=== PATIENT | male | born 1995 | race Caucasian/White ===

== ENCOUNTER 2023-05-06 17:27 | Emergency (ER) | payer BC, SELFPAY ==
--- NOTE | ~2023-05-06 | XR_ITS ---
EXAMINATION: XR hand RT min 3V DATE: 05/06/2023 17:43 INDICATION: Right hand trauma TECHNIQUE: Posteroanterior, oblique and lateral views of the right hand were obtained. COMPARISON: None. FINDINGS: 1 cortical width dorsal lateral displacement and minimal palmar angulation at a transverse fracture a cross the base of the right fifth metacarpal. No evident intra-articular extension. There is mild ove rlying soft tissue swelling. No other fractures identified. Joint spaces are normal. IMPRESSION: 1. Mildly displaced, minimally angulated likely extra articular fracture at the base of the right fif th metacarpal. Reviewed, dictated and finalized at location A. IMPRESSION: 1. Mildly displaced, minimally angulated likely extra articular fracture at the base of the right fifth metacarpal.
--- NOTE | 2023-05-06 17:37 | ED.UPPEXIN ---
HPI - Extremity Injury (Upper) General Chief Complaint: Extremity Injury, Upper Stated Complaint: R HAND / WRIST PAIN Time Seen by Provider: 05/06/23 17:38 Source: patient Mode of arrival: ambulatory Limitations: no limitations History of Present Illness HPI narrative: 27 yo M present with c/o pain and swelling to R hand. States that he hit hand on metal pole in his garage. did not hit it hard at all . Pain and swelling getting progressively worse. ROM decreased due to pain. distal NV intact. All systems reviewed and negative except as noted above. Related Data Home Medications Medication Instructions Recorded Confirmed No Home Medications 05/06/23 05/06/23 Allergies Allergy/AdvReac Type Severity Reaction Status Date / Time No Known Allergies Allergy Verified 05/06/23 17:37 Review of Systems Review of Systems: CONSTITUTIONAL: Denies fever, chills, or sweats. EYES: Denies visual changes, redness, or discharge. ENT: Denies rhinorrhea, congestion, sore throat, or otalgia. CARDIOVASCULAR: Denies chest pain, palpitations, or edema. RESPIRATORY: Denies cough or dyspnea. GASTROINTESTINAL: Denies abdominal pain, nausea, vomiting, or diarrhea. GENITOURINARY: Denies dysuria or hematuria. SKIN: Denies rash or itching. MUSCULOSKELETAL: Denies back pain, joint pain, or myalgia. Reports pain and swelling to right hand. NEUROLOGIC: Denies headache, numbness, or weakness. PSYCHIATRIC: Denies anxiety or depression. All other systems reviewed are negative, except as documented in HPI. PMFSH Comments At time of signature, agree with nursing past medical, surgical, social and family history. There is no relevant family history pertinent to the presenting complaint. Exam Narrative: GENERAL: This is a well-nourished, well-developed patient, in no apparent distress. HEAD: normocephalic, atraumatic. EYES: PERRL. Sclera clear/white. Vision is grossly intact. EARS: External ears normal NOSE: External nose normal NECK: Neck supple, non-tender without lymphadenopathy, masses or thyromegaly. CARDIOVASCULAR: Regular rate and rhythm without murmurs, gallops, or rubs. RESPIRATORY: Clear to auscultation. Breath sounds equal bilaterally. No wheezes, rales, or rhonchi. SKIN: warm, Dry, intact with no suspicious lesions or rash, good texture and turgor. NEURO: awake, alert, and oriented to person, place and time. There were no obvious focal neurologic abnormalities. EXTREMITIES: No joint tenderness, effusion. tender on palpation to R 5th proximal metacarpal. moderate swelling noted. no displacement. ROM decreased due to pain. distal NV intact. Course Course Level of Care: Express Care Visit Vital Signs Vital signs: Review MDM - Extremity Injury (Upper) MDM Narrative Medical decision making narrative: discussed x-ray results with pt. ulnar gutter OCL applied by Eugenia java tech lead. distal NV Intact after application. referred to hand specialist. Imaging Data My impression: agree with radiologist Radiologist's impression: EXAMINATION: XR hand RT min 3V DATE: 05/06/2023 17:43 INDICATION: Right hand trauma TECHNIQUE: Posteroanterior, oblique and? lateral views of the right hand were obtained. COMPARISON: None. FINDINGS: 1 cortical width dorsal lateral displacement and minimal palmar angulation at a transverse fracture across the base of the right fifth metacarpal. No evident intra-articular extension. There is mild overlying soft tissue swelling. No other fractures identified. Joint spaces are normal. IMPRESSION: 1. Mildly displaced, minimally angulated likely extra articular fracture at the base of the right fifth metacarpal. Discharge Plan Discharge Clinical Impression: Fracture of fifth metacarpal bone of right hand Qualifiers: Encounter type: initial encounter Fracture type: closed Patient Disposition: Home, Self-Care Condition: Stable Instructions: Hand Fracture (ED), Boxer Fracture (
[2023-05-06 17:43] VITALS: BP 141/91; PULSE 74; RESP 16; TEMP 37.2
== END 2023-05-06 18:23 | disposition home or self-care (01) ==
PROVIDERS: Emergency Provider Nurse Practitioner Family
DX: S62.316A Displaced fracture of base of fifth metacarpal bone, right hand, initial encounter for closed fracture (principal); W22.8XXA Striking against or struck by other objects, initial encounter
CPT/HCPCS: 29125; 73130; 99214; G0463

== ENCOUNTER 2023-05-22 10:12 | Outpatient (CLI) | payer BC, SELFPAY ==
--- NOTE | ~2023-05-22 | XR_ITS ---
Right Hand Technique: PA, oblique, and lateral views were obtained. Clinical History: Fracture COMPARISON: 05/06/2023 Findings: Transverse fracture the base of the fifth metacarpal is again present, with essentially sta ble alignment from prior exam. No new fracture identified. Joint spaces are preserved. Soft tissues a re unremarkable. Impression: Transverse, minimally displaced fracture of the base of fifth metacarpal is unchanged from prior exam . Reviewed, dictated and finalized at location M. Impression: Transverse, minimally displaced fracture of the base of fifth metacarpal is unc hanged from prior exam.
== END 2023-05-22 10:13 | disposition home or self-care (01) ==
PROVIDERS: Visit Provider Plastic Surgery
DX: S62.316A Displaced fracture of base of fifth metacarpal bone, right hand, initial encounter for closed fracture (principal)
CPT/HCPCS: 73130